=== PATIENT | female | born 1980 | race Caucasian/White ===

== ENCOUNTER 2021-02-02 10:37 | Emergency (ER) | payer BC, SELFPAY ==
[2021-02-02 10:50] VITALS: BP 138/81; PULSE 98; RESP 16; TEMP 36.6; O2SAT 99
--- NOTE | 2021-02-02 11:17 | ED.URI ---
HPI - URI/Sore Throat General Chief Complaint: Upper Respiratory Infection Stated Complaint: Congestion Time Seen by Provider: 02/02/21 11:17 Source: patient, RN notes reviewed and old records reviewed Mode of arrival: ambulatory Limitations: no limitations History of Present Illness HPI Narrative: 40 year old female who presents to [facility] care with complaints of 5 day history of cough, congestion, nasal drainage and sinus pressure. Patient is in area from [place] for private adoption and has been staying in area hotel till all arrangements are finalized, is with them states is wearing a mask at all times around infant.. She states that she has not had any fever, chills or sweats, no nausea or vomiting or diarrhea.She reports that her son had been ill prior to them leaving from [place] but children did not come with them to [place]. Patient reports that she has been taking OTC Theraflu for her symptoms, reports has been COVID vaccinated.. MD elicited complaint: cough and nasal congestion Related Data Allergies Allergy/AdvReac Type Severity Reaction Status Date / Time No Known Allergies Allergy Verified 02/02/21 10:48 Review of Systems Review of Systems: CONSTITUTIONAL: Denies any known fever, chills, or sweats. EYES: Denies visual changes, redness, or discharge. ENT: Positive for rhinorrhea, congestion,no sore throat, or otalgia. CARDIOVASCULAR: Denies chest pain, palpitations, or edema. RESPIRATORY: Positive for cough denies dyspnea. GASTROINTESTINAL: Denies abdominal pain, nausea, vomiting, or diarrhea. GENITOURINARY: Denies dysuria or hematuria. SKIN: Denies rash or itching. MUSCULOSKELETAL: Denies back pain, joint pain, or myalgia. NEUROLOGIC: Denies headache, numbness, or weakness. PSYCHIATRIC: Denies anxiety or depression. All systems reviewed & are unremarkable except as noted in HPI and below PMFSH Past Medical History Medical History (Updated 02/03/21 @ 11:26 by Anabell Lebron NP) No significant medical problems Surgical History Surgical History (Updated 02/03/21 @ 11:23 by Anabell Lebron NP) Previous section X2 Family History Family History (Updated 02/03/21 @ 11:26 by Anabell Lebron NP) Other Diabetes mellitus Hypertension Social History Social History (Updated 02/03/21 @ 11:27 by Anabell Lebron NP) Smoking status: Never smoker Alcohol intake: current Alcohol use details: rare social Substance use: never Living arrangements: with family Gender identity (if verbalized by the patient): Female Comments At time of signature, agree with nursing past medical, surgical, social and family history. There is no relevant family history pertinent to the presenting complaint Exam Narrative: GENERAL: Well-appearing, well-nourished, and in no acute distress. HEAD: Normocephalic, atraumatic. EYES: PERRLA and EOMI. ENT: Nares with swollen turbinates and clear rhinorrhea no epistaxis. Mucous membranes moist.TM's normal with good light reflex, throat with some redness with no exudates or lesions or tonsil enlargement NECK: Supple.no lymphadenopathy CHEST: Clear to auscultation. No respiratory distress.SAO2 99% on room air. HEART: Regular rate and rhythm. No murmur heard. Normal peripheral pulses. ABDOMEN: Soft, nontender, nondistended, normal active bowel sounds. EXTREMITIES: Normal range of motion. No edema. SKIN: Warm, dry, no rash. NEURO: No focal deficits. Alert and oriented x3. Course Vital Signs Vital signs: Vital Signs Temperature 36.6 C 02/02/21 10:50 Pulse Rate 98 02/02/21 10:50 Respiratory Rate 16 02/02/21 10:50 Blood Pressure 138/81 02/02/21 10:50 Pulse Oximetry 99 02/02/21 10:50 Temperature 36.6 C 02/02/21 10:50 Pulse Rate 98 02/02/21 10:50 Respiratory Rate 16 02/02/21 10:50 Blood Pressure 138/81 02/02/21 10:50 Pulse Oximetry 99 02/02/21 10:50 MDM - URI/Sore Throat Differential Diagnosis Differential di
== END 2021-02-02 11:34 | disposition home or self-care (01) ==
PROVIDERS: Emergency Provider Registered Nurse
DX: J01.90 Acute sinusitis, unspecified (principal)
CPT/HCPCS: 99213; G0463